=== PATIENT | male | born 1945 | race Caucasian/White ===

== ENCOUNTER 2018-02-24 03:19 | Observation (INO) ==
[2018-02-24] MEDS ORDERED: metroNIDAZOLE INJ 500 MG in PREMIX 1 EACH IV STA (04:08)
[2018-02-24] MEDS ORDERED: ONDANSETRON 4 MG/2 ML VIAL IV PRN ×3 (04:10→10:51)
[2018-02-24] MEDS ORDERED: HYDROmorphone 2 MG/1 ML VIAL IV PRN (04:10)
[2018-02-24] MEDS ORDERED: LACTATED RINGERS 1,000 ML IV SCH ×2 (04:30→10:51)
[2018-02-24] MEDS ORDERED: MORPHINE 4 MG/1 ML VIAL ONE (04:48)
[2018-02-24] MEDS ORDERED: MORPHINE 4 MG/1 ML VIAL IV PRN ×2 (05:27→10:51)
[2018-02-24] MEDS ORDERED: cefOXitin 2,000 MG in SYRINGE 1 EACH IV ONE (07:22)
[2018-02-24] MEDS ORDERED: BUPIVACAINE MPF 0.25% /EPI 30 ML VIAL ONE (07:54)
[2018-02-24] MEDS ORDERED: TISSUE ADHESIVE 1 EACH APPLICATOR TOP ONE (07:54)
[2018-02-24] MEDS ORDERED: LIDOCAINE 1%/EPI INJ 20 ML VIAL ONE (07:55)
[2018-02-24] MEDS ORDERED: PANTOPRAZOLE 40 MG TABLET PO SCH (09:00)
[2018-02-24] MEDS: ALBUTEROL 2.5 MG/3 ML NEB RESP TX ONE ×2 (09:25→10:54)
[2018-02-24] MEDS ORDERED: hydrALAZINE 20 MG/1 ML VIAL ONE (09:28)
[2018-02-24] MEDS ORDERED: MEPERIDINE 25 MG/1 ML VIAL IV PRN (09:29)
[2018-02-24] MEDS ORDERED: MORPHINE 10 MG/1 ML VIAL IV PRN (09:29)
[2018-02-24] MEDS ORDERED: hydrALAZINE 20 MG/1 ML VIAL IV ONE (09:29)
[2018-02-24] MEDS ORDERED: CARVEDILOL 6.25 MG TABLET PO SCH (10:51)
[2018-02-24] MEDS ORDERED: TAMSULOSIN 0.4 MG CAPSULE PO SCH (10:51)
[2018-02-24] MEDS ORDERED: PROMETHAZINE 25 MG/1 ML VIAL IM PRN (10:51)
[2018-02-24] MEDS ORDERED: MULTIVITAMIN (BEROCCA) TABLET PO SCH (10:51)
[2018-02-24] MEDS ORDERED: ATORVASTATIN 20 MG TABLET PO SCH (10:51)
[2018-02-24] MEDS ORDERED: ePHEDrine 50 MG/ML AMP ONE (12:06)
[2018-02-24] MEDS ORDERED: PROPOFOL 200 MG/20 ML VIAL IV ONE (12:24)
[2018-02-24] MEDS ORDERED: fentaNYL 100 MCG/2 ML VIAL ONE (12:25)
[2018-02-24] MEDS ORDERED: GLYCOPYRROLATE 0.4 MG/2 ML VIAL ONE (12:25)
[2018-02-24] MEDS ORDERED: ONDANSETRON 4 MG/2 ML VIAL ONE (12:25)
[2018-02-24] MEDS ORDERED: LABETALOL 20 MG/4 ML SYRINGE IV ONE (12:25)
[2018-02-24] MEDS ORDERED: PHENYLEPHRINE 10 MG/1 ML VIAL IV ONE (12:25)
[2018-02-24] MEDS ORDERED: MIDAZOLAM 2 MG/2 ML VIAL ONE (12:25)
[2018-02-24] MEDS ORDERED: SEVOFLURANE 1 UNIT/15 MINUTE INH ONE (12:25)
[2018-02-24] MEDS ORDERED: ROCURONIUM 100 MG/10 ML VIAL IV ONE (12:26)
[2018-02-24] MEDS ORDERED: NEOSTIGMINE 10 MG/10 ML VIAL ONE (12:26)
[2018-02-24] MEDS ORDERED: SODIUM CHLORIDE 0.9% 100 ML IV ONE (12:26)
[2018-02-24] MEDS ORDERED: LACTATED RINGERS 1,000 ML IV ONE (12:26)
[2018-02-24 13:47] VITALS: BP 121/68
== END 2018-02-24 13:40 | disposition home or self-care (01) ==
LOC: N.ED 03:19 → INTOOBSV 04:08 → N.EDINP 04:08 → N.3E 04:43
PROVIDERS: ADMIT Surgery; ATTEND Surgery